=== PATIENT | female | born 1945 | race Caucasian/White ===

== ENCOUNTER → 2016-09-07 | Outpatient (CLI) | payer BC ==
[~2016-09-07] MED LIST: CMD/25 PO; DTR5 PO; HYDC25 PO; LISI-729 PO; LSX20 PO; MULT-190 PO; OMEG10007 PO; PRLSR20 PO; SIMV10TA2 PO; STLS
--- NOTE | 2016-09-08 07:55 | MAMMOGRAPHY REPORT ---
BILATERAL DIGITAL SCREENING MAMMOGRAM WITH CAD: 09/07/2016 CLINICAL HISTORY: Routine screening. Patient has no complaints. TECHNIQUE: Bilateral CC and MLO views with repeat MLO views were obtained. Current study was also evaluated with a Computer Aided Detection (CAD) system. COMPARISON: Comparison is made to exams dated: 12/17/2014 mammogram, 08/09/2013 mammogram, 05/19/2012 mammogram, 12/08/2010 mammogram, 12/05/2009 mammogram - [facility], and 12/04/2008. BREAST COMPOSITION: The tissue of both breasts is almost entirely fatty. FINDINGS: There are stable benign-appearing microcalcifications bilaterally. No new suspicious mass , architectural distortion or cluster of microcalcifications is seen. IMPRESSION: ACR BI-RADS CATEGORY 1: NEGATIVE There is no mammographic evidence of malignancy. A 1 year screening mammogram is recommended. The p atient will receive written notification of the results. Approximately 10% of breast cancers are not detected with mammography. A negative mammographic repor t should not delay biopsy if a clinically suggestive mass is present. Sissy Manzano M.D. ay/:09/07/2016 16:28:11 Provider Contracting Consultant: Bertha MORALES(R)(Aissatou)(BD), [facility] letter sent: Normal 1/2 BI-RADS Code: ACR BI-RADS Category 1: Negative
== END | disposition home or self-care (01) ==
LOC: C.MAMM 13:49
PROVIDERS: ATTEND Family Medicine
DX: Z12.31 Encounter for screening mammogram for malignant neoplasm of breast (principal)

== ENCOUNTER → 2017-11-29 | Outpatient (CLI) | payer BC ==
--- NOTE | 2017-11-30 14:56 | MAMMOGRAPHY REPORT ---
BILATERAL DIGITAL SCREENING MAMMOGRAM TOMOSYNTHESIS WITH CAD: 11/29/2017 CLINICAL HISTORY: Routine screening. TECHNIQUE: The study was acquired using full field digital technology and interpreted from soft copy. Breast tomosynthesis in addition to standard 2D mammography was performed. Current study was also ev aluated with a Computer Aided Detection (CAD) system. COMPARISON: Comparison is made to exams dated: 09/07/2016 mammogram, 12/17/2014 mammogram, 08/09/2013 m ammogram, 05/19/2012 mammogram, 12/08/2010 mammogram, and 12/05/2009 mammogram - [facility]. BREAST COMPOSITION: There are scattered areas of fibroglandular density in both breasts. FINDINGS: There is a stable intramammary lymph node in the right upper outer quadrant posteriorly, an d scattered benign-appearing calcifications. No suspicious mass, architectural distortion or cluster of microcalcifications is seen. IMPRESSION: ACR BI-RADS CATEGORY 1: NEGATIVE There is no mammographic evidence of malignancy. A 1 year screening mammogram is recommended.( 019) The patient will receive written notification of the results. Some breast cancers are not detected with mammography. A negative mammographic report should not catalino y biopsy if a clinically suggestive mass is present. Sissy Manzano M.D. ay/:11/29/2017 14:52:03 Attending Technologist: Padma Hernadez RT(R)(M), [facility] Masonry Installer: RT Juvencio(R)(M), [facility] letter sent: Normal 1/2 BI-RADS Code: ACR BI-RADS Category 1: Negative
== END | disposition home or self-care (01) ==
LOC: C.MAMM 14:24
PROVIDERS: ATTEND Family Medicine
DX: Z12.31 Encounter for screening mammogram for malignant neoplasm of breast (principal)

== ENCOUNTER 2020-10-30 19:11 | Observation (INO) ==
[2020-10-30] MEDS ORDERED: PIPERACILL/TAZOBAC CONSULT ACTIVE PRN ×2 (19:32→23:36)
[2020-10-30] MEDS ORDERED: PIPERACILLIN/TAZOBACTAM 4.5 GM/120 ML BAG IV ONE (19:32)
--- NOTE | 2020-10-30 19:40 | Emergency Department Note ---
History of Present Illness General Chief complaint: Swelling/Edema to Extremity Stated complaint: leg swelling Time Seen by Provider: 10/30/20 19:21 Source: patient and family (Son who is at the bedside) Mode of arrival: ambulatory Limitations: no limitations History of Present Illness This patient is a 74-year-old female comes in with bilateral lower extremity edema. This has been chronic but it gets worse off and on. It has been worse over last week or so. Her right leg is greater than the left and it has some weepiness and skin breakdown. There is a ulcerated area she has had no trauma she does have Parkinson has had several falls in the last 2 weeks but no known injuries. She had a blister on her right leg. Denies fever. Denies chest pain or shortness of breath. She has had the Covid vaccine series. No abdominal pain. No blood or melena in her stool. She is followed by Dr. West She denies any syncope or injuries with falling. Denies history of blood clots. She is on no blood thinners. No history of cellulitis. Home Medications Medication Instructions Recorded Confirmed Type aspirin 81 mg tablet,delayed 81 mg PO QAM 06/23/20 10/30/20 History release bupropion HCl 150 mg tablet,12 hr 150 mg PO QAM 06/23/20 10/30/20 History sustained-release omeprazole 20 mg capsule,delayed 20 mg PO HS 06/23/20 10/30/20 History release oxybutynin chloride 15 mg 15 mg PO QAM 06/23/20 10/30/20 History tablet,extended release 24 hr simvastatin 10 mg tablet 10 mg PO HS 06/23/20 10/30/20 History amino acids-multivit with iron and 1 tab PO DAILY 10/30/20 10/30/20 History minerals tablet carbidopa 25 mg-levodopa 100 mg 2 tab PO QID 10/30/20 10/30/20 History tablet docusate sodium 100 mg capsule 100 mg PO HS 10/30/20 10/30/20 History (Colace) furosemide 20 mg tablet 20 mg PO BID 10/30/20 10/30/20 History lorazepam 0.5 mg tablet 0.5 mg PO DAILY PRN 10/30/20 10/30/20 History Allergies Allergy/AdvReac Type Severity Reaction Status Date / Time ketorolac AdvReac Severe NO TORADOL Verified 10/30/20 21:48 ([id number] ADMISSION) Past Med/Surg History Social History Smoking Status: Never smoker Hx Alcohol Use: No Hx Substance Use: No Preferred Language: Maltese Communication Ability: Effective Beliefs That Will Affect Care: None Current Living Situation: Family Feels Safe at Home: Yes Assistive Devices: Glasses Immunizations: Past medical historyLamberto's Social historyshe lives at home with her son Review of Systems A total of 10 systems reviewed and were otherwise negative Physical Exam General: Well developed well nourished older female who appears in no acute distress, breathing comfortably on room air. Normal speech HEENT: Normal cephalic atraumatic. Pupils are equal round and reactive to light. Extraocular movements are intact. Oropharynx is pink with moist mucous membranes. No swelling of the mouth lips or tongue. Neck: Supple with a midline trachea. No meningeal signs or stiffness, no JVD or bruits. No Stridor. Chest: Clear to auscultation bilaterally. No wheezes or rhonchi. No increased work of breathing. Heart: Regular rate and rhythm without murmurs or gallops. Abdomen: Soft nontender, nondistended without rebound guarding or rigidity. Extremities: No cyanosis clubbing or edema. No calf tenderness or assymetry. She has trace to 1+ bilateral lower extremity edema. Is greater on the right with some swelling in the foot. Her shins are mildly red bilaterally. There is some superficial breakdown with a large circular superficial ulceration in the right curry. She has 2+ distal pulses. She has good capillary refill Spine/Back. Non tender to palpation. No CVA tenderness Skin: Good turgor without rashes. Neurologic exam: Cranial nerves two through 12 are intact. Motor and sensation are intact and symmetrical throughout. Course Administered Medications Acetaminophen (Acetaminophen 325 Mg Tab) 650 mg PO Q4H PRN PRN Reason: Pain or Fever Stop: 11/29/20 23:35 Last Admin: 10/31/20 01:10 Dose: 650 mg Documented by: [id number] Aspirin (Aspirin 81 Mg Ectab) [facility] Stop: 11/30/20 08:59 Last Admin: 11/02/20 08:26 Dose: 81 mg Documented by: [id number] Admin: 11/01/20 10:26 Dose: 81 mg Documented by: [id number] Admin: 10/31/20 09:39 Dose: 81 mg Documented by: [id number] Bupropion HCl (Bupropion Sr 150 Mg Tabcr) 150 mg PO QAM GOLD Stop: 11/30/20 08:59 Last Admin: 11/02/20 08:26 Dose: 150 mg Documented by: [id number] Admin: 11/01/20 10:26 Dose: 150 mg Documented by: [id number] Admin: 10/31/20 09:39 Dose: 150 mg Documented by: [id number] Carbidopa/Levodopa (Carbidopa/Levodopa 25/100mg Tab) 2 tab PO QID GOLD Stop: 11/30/20 08:59 Last Admin: 11/02/20 16:11 Dose: Not Given Documented by: [id number] Admin: 11/02/20 12:29 Dose: Not Given Documented by: [id number] Admin: 11/02/20 08:35 Dose: Not Given Documented by: [id number] Admin: 11/01/20 20:42 Dose: 2 tab Documented by: [id number] Admin: 11/01/20 16:10 Dose: Not Given Documented by: [id number] Admin: 11/01/20 15:12 Dose: Not Given Documented by: [id number] Admin: 11/01/20 10:30 Dose: Not Given Documented by: [id number] Admin: 10/31/20 20:22 Dose: 2 tab Documented by: [id number] Admin: 10/31/20 17:09 Dose: 2 tab Documented by: [id number] Admin: 10/31/20 13:21 Dose: 2 tab Documented by: [id number] Admin: 10/31/20 09:38 Dose: 2 tab Documented by: [id number] Docusate Sodium (Docusate Sodium 100 Mg Cap) 100 mg PO HS GOLD Stop: 11/30/20 20:59 Last Admin: 11/01/20 20:42 Dose: 100 mg Documented by: [id number] Admin: 10/31/20 20:22 Dose: 100 mg Documented by: [id number] Heparin Sodium (Porcine) (Heparin Sod 5,000 Unit/0.5 Ml Vial) 5,000 units SQ Q8 GOLD Stop: 11/30/20 00:29 Last Admin: 11/02/20 14:00 Dose: 5,000 units Documented by: [id number] Admin: 11/02/20 05:26 Dose: 5,000 units Documented by: [id number] Admin: 11/01/20 20:42 Dose: 5,000 units Documented by: [id number] Admin: 11/01/20 16:08 Dose: 5,000 units Documented by: [id number] Admin: 11/01/20 06:17 Dose: 5,000 units Documented by: [id number] Admin: 10/31/20 22:10 Dose: 5,000 units Documented by: [id number] Admin: 10/31/20 13:21 Dose: 5,000 units Documented by: [id number] Admin: 10/31/20 09:37 Dose: 5,000 units Documented by: [id number] Admin: 10/31/20 01:51 Dose: 5,000 units Documented by: [id number] Furosemide 20 mg/ Syringe 2 mls @ 4 mls/min IV [id number] GOLD Stop: 11/30/20 08:59 Last Admin: 11/02/20 08:26 Dose: 4 mls/min Documented by: [id number] Admin: 11/01/20 16:10 Dose: 4 mls/min Documented by: [id number] Admin: 11/01/20 10:26 Dose: 4 mls/min Documented by: [id number] Admin: 10/31/20 17:09 Dose: 4 mls/min Documented by: [id number] Admin: 10/31/20 09:38 Dose: 4 mls/min Documented by: [id number] Oxybutynin Chloride (Oxybutynin Chloride Xl 5 Mg Tabcr) 15 mg PO QA GOLD Stop: 11/30/20 08:59 Last Admin: 11/02/20 08:26 Dose: 15 mg Documented by: [id number] Admin: 11/01/20 10:26 Dose: 15 mg Documented by: [id number] Admin: 10/31/20 09:39 Dose: 15 mg Documented by: [id number] Pantoprazole Sodium (Pantoprazole 40 Mg Tab) 40 mg PO GOLD Stop: 11/30/20 20:59 Last Admin: 11/01/20 20:43 Dose: 40 mg Documented by: [id number] Admin: 10/31/20 20:21 Dose: 40 mg Documented by: [id number] Simvastatin (Simvastatin 10 Mg Tab) 10 mg PO HS GOLD Stop: 11/30/20 20:59 Last Admin: 11/01/20 20:42 Dose: 10 mg Documented by: [id number] Admin: 10/31/20 20:21 Dose: 10 mg Documented by: [id number] Discontinued Medications Furosemide (Furosemide 40 Mg/4 Ml Vial) 20 mg IV BID GOLD Stop: 11/29/20 21:59 Last Admin: 10/30/20 22:22 Dose: 20 mg Documented by: [id number] Piperacillin Sod/Tazobactam Sod (Zosyn) 4.5 gm in 120 mls @ 240 mls/hr IV NOW ONE Stop: 10/30/20 20:01 Last Infusion: 10/30/20 20:35 Dose: 0 mls/hr Documented by: [id number] Admin: 10/30/20 19:58 Dose: 240 mls/hr Documented by: [id number] Piperacillin Sod/Tazobactam (Sod 3.375 gm/ Dextrose) 115 mls @ 28.75 mls/hr IV Q8H GOLD; Protocol Stop: 11/07/20 01:59 Last Infusion: 11/02/20 15:07 Dose: 0 mls/hr Documented by: [id number] Admin: 11/02/20 10:47 Dose: 28.8 mls/hr Documented by: [id number] Infusion: 11/02/20 05:59 Dose: 0 mls/hr Documented by: [id number] Admin: 11/02/20 01:54 Dose: 28.8 mls/hr Documented by: [id number] Infusion: 11/01/20 22:51 Dose: 0 mls/hr Documented by: [id number] Admin: 11/01/20 18:44 Dose: 28.8 mls/hr Documented by: [id number] Infusion: 11/01/20 15:12 Dose: 0 mls/hr Documented by: [id number] Admin: 11/01/20 10:26 Dose: 28.8 mls/hr Documented by: [id number] Infusion: 11/01/20 06:00 Dose: 0 mls/hr Documented by: [id number] Admin: 11/01/20 01:55 Dose: 28.8 mls/hr Documented by: [id number] Infusion: 10/31/20 22:10 Dose: 0 mls/hr Documented by: [id number] Admin: 10/31/20 17:12 Dose: 28.8 mls/hr Documented by: [id number] Infusion: 10/31/20 13:36 Dose: 0 mls/hr Documented by: [id number] Admin: 10/31/20 09:52 Dose: 28.8 mls/hr Documented by: [id number] Infusion: 10/31/20 05:56 Dose: 0 mls/hr Documented by: [id number] Admin: 10/31/20 01:52 Dose: 28.8 mls/hr Documented by: [id number] Medical Decision Making Differential Diagnosis Sepsis, electrolyte or metabolic abnormality, CHF, cellulitis, DVT, Covid, cardiac disease Medical Records Attestation: I reviewed the patient's medical records. Home Medications Current Medication List: was personally reviewed by me Laboratory Data Attestation: I reviewed the patient's lab results. Result diagrams: 11/01/20 06:53 11/02/20 07:07 Lab Results 10/30/20 10/30/20 10/30/20 Range/Units 19:26 19:26 19:26 WBC 9.45 (4.8-10.8) K/uL RBC 3.53 L (4.2-5.4) M/uL Hgb 10.6 L (12.0-16.0) g/dL Hct 32.9 L (37-47) % MCV 93.2 (80-100) fL MCH 30.0 (25-34) pg MCHC 32.2 (32-36) g/dL RDW Std Deviation 51.9 H (36.4-46.3) fL RDW Coeff of Gavino 15.2 H (11.5-14.5) % Plt Count 419 H (130-400) K/uL MPV 9.3 (7.4-10.4) fL Immature Gran % (Auto) 0.1 % Neut % (Auto) 68.7 % Lymph % (Auto) 20.8 % Childress % (Auto) 8.4 % Eos % (Auto) 1.5 % Baso % (Auto) 0.5 % Neut # (Auto) 6.49 (1.4-6.5) K/uL Lymph # (Auto) 1.97 (1.2-3.4) K/uL Childress # (Auto) 0.79 H (0.11-0.59) K/uL Eos # (Auto) 0.14 (0-0.5) K/uL Baso # (Auto) 0.05 (0-0.2) K/uL Immature Gran # (Auto) 0.01 (0.00-0.02) K/uL PT (9.0-12.0) Seconds INR (0.9-1.1) APTT (21.0-31.0) Seconds PTT Ratio Sodium 141 (136-145) mmol/L Potassium 3.1 L (3.5-5.1) mmol/L Chloride 107 (98-107) mmol/L Carbon Dioxide 28 (21-32) mmol/L Anion Gap 6.0 (3-11) BUN 40 H (7-18) mg/dl Creatinine 1.55 H (0.6-1.2) mg/dl Est Cr Clr Drug Dosing 29.5 ml/min Est GFR ( Amer) 37.8 ml/min Est GFR (Non-Af Amer) 32.6 ml/min BUN/Creatinine Ratio 25.5 H (10-20) Glucose 89 (70-99) mg/dl Lactate (0.4-2.0) mmol/L Calcium 9.2 (8.5-10.1) mg/dl Magnesium 2.2 (1.8-2.4) mg/dl Total Bilirubin 0.5 (0.2-1) mg/dl AST 21 (15-37) U/L ALT 24 (12-78) U/L Alkaline Phosphatase 101 (45-117) U/L Troponin I < 0.015 (0-0.045) ng/ml Total Protein 7.5 (6.4-8.2) gm/dl Albumin 3.3 L (3.4-5.0) gm/dl Globulin 4.2 H (2.5-4.0) gm/dl Albumin/Globulin Ratio 0.8 L (0.9-2) Procalcitonin 0.12 (0-0.5) ng/ml COVID-19 Eval Order SARS-CoV-2 (PCR) (Negative) 10/30/20 10/30/20 10/30/20 Range/Units 19:56 19:56 19:57 WBC (4.8-10.8) K/uL RBC (4.2-5.4) M/uL Hgb (12.0-16.0) g/dL Hct (37-47) % MCV (80-100) fL MCH (25-34) pg MCHC (32-36) g/dL RDW Std Deviation (36.4-46.3) fL RDW Coeff of Gavino (11.5-14.5) % Plt Count (130-400) K/uL MPV (7.4-10.4) fL Immature Gran % (Auto) % Neut % (Auto) % Lymph % (Auto) % Childress % (Auto) % Eos % (Auto) % Baso % (Auto) % Neut # (Auto) (1.4-6.5) K/uL Lymph # (Auto) (1.2-3.4) K/uL Childress # (Auto) (0.11-0.59) K/uL Eos # (Auto) (0-0.5) K/uL Baso # (Auto) (0-0.2) K/uL Immature Gran # (Auto) (0.00-0.02) K/uL PT (9.0-12.0) Seconds INR (0.9-1.1) APTT (21.0-31.0) Seconds PTT Ratio Sodium (136-145) mmol/L Potassium (3.5-5.1) mmol/L Chloride (98-107) mmol/L Carbon Dioxide (21-32) mmol/L Anion Gap (3-11) BUN (7-18) mg/dl Creatinine (0.6-1.2) mg/dl Est Cr Clr Drug Dosing ml/min Est GFR ( Amer) ml/min Est GFR (Non-Af Amer) ml/min BUN/Creatinine Ratio (10-20) Glucose (70-99) mg/dl Lactate 1.0 (0.4-2.0) mmol/L Calcium (8.5-10.1) mg/dl Magnesium (1.8-2.4) mg/dl Total Bilirubin (0.2-1) mg/dl AST (15-37) U/L ALT (12-78) U/L Alkaline Phosphatase (45-117) U/L Troponin I (0-0.045) ng/ml Total Protein (6.4-8.2) gm/dl Albumin (3.4-5.0) gm/dl Globulin (2.5-4.0) gm/dl Albumin/Globulin Ratio (0.9-2) Procalcitonin (0-0.5) ng/ml COVID-19 Eval Order Covid19 at [facility] SARS-CoV-2 (PCR) NEGATIVE (Negative) 10/30/20 Range/Units 20:27 WBC (4.8-10.8) K/uL RBC (4.2-5.4) M/uL Hgb (12.0-16.0) g/dL Hct (37-47) % MCV (80-100) fL MCH (25-34) pg MCHC (32-36) g/dL RDW Std Deviation (36.4-46.3) fL RDW Coeff of Gavino (11.5-14.5) % Plt Count (130-400) K/uL MPV (7.4-10.4) fL Immature Gran % (Auto) % Neut % (Auto) % Lymph % (Auto) % Childress % (Auto) % Eos % (Auto) % Baso % (Auto) % Neut # (Auto) (1.4-6.5) K/uL Lymph # (Auto) (1.2-3.4) K/uL [place] # (Auto) (0.11-0.59) K/uL Eos # (Auto) (0-0.5) K/uL Baso # (Auto) (0-0.2) K/uL Immature Gran # (Auto) (0.00-0.02) K/uL PT 10.5 (9.0-12.0) Seconds INR 1.0 (0.9-1.1) APTT 26.2 (21.0-31.0) Seconds PTT Ratio 1.0 Sodium (136-145) mmol/L Potassium (3.5-5.1) mmol/L Chloride (98-107) mmol/L Carbon Dioxide (21-32) mmol/L Anion Gap (3-11) BUN (7-18) mg/dl Creatinine (0.6-1.2) mg/dl Est Cr Clr Drug Dosing ml/min Est GFR ( Amer) ml/min Est GFR (Non-Af Amer) ml/min BUN/Creatinine Ratio (10-20) Glucose (70-99) mg/dl Lactate (0.4-2.0) mmol/L Calcium (8.5-10.1) mg/dl Magnesium (1.8-2.4) mg/dl Total Bilirubin (0.2-1) mg/dl AST (15-37) U/L ALT (12-78) U/L Alkaline Phosphatase (45-117) U/L Troponin I (0-0.045) ng/ml Total Protein (6.4-8.2) gm/dl Albumin (3.4-5.0) gm/dl Globulin (2.5-4.0) gm/dl Albumin/Globulin Ratio (0.9-2) Procalcitonin (0-0.5) ng/ml COVID-19 Eval Order SARS-CoV-2 (PCR) (Negative) Imaging Data My Impression: Chest x-rayno acute infiltrate, failure, pneumothorax seen Radiologist's Impression: Chest X-Ray 10/30/20 19:32 XR chest 1V portable HISTORY: 74 years-old Female SEPSIS acute sepsis COMPARISON: 08/23/2011 TECHNIQUE: Portable AP view of the chest FINDINGS: Cardiomediastinal and hilar silhouettes are within normal limits. No pneumothorax, pleural effusion, airspace consolidation or overt pulmonary edema. Degenerative changes of the shoulders and spine. IMPRESSION: No acute process. ACT 112: Negative or not required by law. The above report was generated using voice recognition software. It may contain grammatical, syntax or spelling errors. Electronically signed by: Ric Wolfe M.D. 10/30/2020 7:53 PM ECG Data Attestation: I personally reviewed and interpreted this ECG as follows: Indication: + weakness Rate (beats per minute): 84 Rhythm: + normal sinus ECG Intervals/blocks: + Normal QRS, + Normal QT and + Normal IN ECG [place]: + Normal ECG ST segments: + Normal ST segments ECG Findings: no PACs or no PVCs Comparison ECG Date: from (09/30/15) Change: no significant change MDM Narrative This patient comes in with bilateral lower extremity edema right greater than left she has a skin breakdown with a ulceration. She does have a history of Parkinson's as well. She is on no blood thinners. IV access was established a sepsis type work-up was obtained. She had chest x-ray and EKG. EKG does not show any ischemic changes or ectopy. She was given IV Zosyn 4.5 g. Chest x-ray does not suggest acute CHF pneumonia or pneumothorax. No significant lecture light or metabolic abnormalities. White count and lactic acid are not significantly elevated. Given the fact that she has significant redness and ulceration/skin breakdown I do think she would benefit from IV antibiotics and further treatment and evaluation I have consulted the [facility] to see her in the ER for these measures. Continuous cardiac monitoring: Orders placed in EMR for continuous cardiac monitoring. Upon my evaluation the was to be in normal sinus rhythm with a rate of 80 Impression & Plan Cellulitis, Edema leg, Lab test negative for COVID-19 virus, Weakness Discharge Plan Visit Data Chief Complaint: Swelling/Edema to Extremity Stated Complaint: leg swelling ED Provider: Shakeel Flores Discharge Problem: Cellulitis, Edema leg, Lab test negative for COVID-19 virus, Weakness Patient Disposition: Admitted As Inpatient Discharge Instructions Interventions: ED Discharge Assessment Last Done: 10/30/20 22:35 Discharge Problem: Cellulitis Qualifiers: Site of cellulitis: extremity Site of cellulitis of extremity: lower extremity Laterality: right Qualified Code(s): L03.115 - Cellulitis of right lower limb
--- NOTE | 2020-10-30 19:55 | XRay Report ---
XR chest 1V portable HISTORY: 74 years-old Female SEPSIS acute sepsis COMPARISON: 08/23/2011 TECHNIQUE: Portable AP view of the chest FINDINGS: Cardiomediastinal and hilar silhouettes are within normal limits. No pneumothorax, pleural effusion, airspace consolidation or overt pulmonary edema. Degenerative changes of the shoulders and spine. IMPRESSION: No acute process. ACT 112: Negative or not required by law. The above report was generated using voice recognition software. It may contain grammatical, syntax o r spelling errors. Electronically signed by: Ric Wolfe M.D. 10/30/2020 7:53 PM
[2020-10-30 20:10] LABS: Basophils # (auto) 0.05 K/uL (0-0.2); Basophils % (auto) 0.5 %; Eosinophils # (auto) 0.14 K/uL (0-0.5); Eosinophils % (auto) 1.5 %; Hematocrit (blood only) 32.9 % (37-47); Hemoglobin 10.6 g/dL (12.0-16.0); Immature Granulocytes # (auto) 0.01 K/uL (0.00-0.02); Immature Granulocytes % (auto) 0.1 %; Lymphocytes # (auto) 1.97 K/uL (1.2-3.4); Lymphocytes % (auto) 20.8 %; Mean Corpuscular Hgb Conc 32.2 g/dL (32-36); Mean Corpuscular Volume 93.2 fL (80-100); Mean Platelet Volume 9.3 fL (7.4-10.4); Monocytes # (auto) 0.79 K/uL (0.11-0.59); Monocytes % (auto) 8.4 %; Neutrophils # (auto) 6.49 K/uL (1.4-6.5); Neutrophils % (auto) 68.7 %; Platelet Count 419 K/uL (130-400); RDW Coefficient of Variation 15.2 % (11.5-14.5); RDW Standard Deviation 51.9 fL (36.4-46.3); Red Blood Count 3.53 M/uL (4.2-5.4); White Blood Count 9.45 K/uL (4.8-10.8)
[2020-10-30 20:27] LABS: Alanine Aminotransferase 24 U/L (12-78); Albumin Level 3.3 gm/dl (3.4-5.0); Aspartate Aminotransferase 21 U/L (15-37); BUN Creatinine Ratio 25.5 (10-20); Blood Urea Nitrogen 40 mg/dl (7-18); Calcium 9.2 mg/dl (8.5-10.1); Carbon Dioxide 28 mmol/L (21-32); Chloride 107 mmol/L (98-107); Creatinine Clr Calc Pharmacy 29.5 ml/min; Est GFR (African American) 37.8 ml/min; Est GFR (Non-African American) 32.6 ml/min; Glucose 89 mg/dl (70-99); Magnesium 2.2 mg/dl (1.8-2.4); Potassium 3.1 mmol/L (3.5-5.1); Sodium 141 mmol/L (136-145)
[2020-10-30 20:31] LABS: Albumin Globulin Ratio 0.8 (0.9-2); Alkaline Phosphatase 101 U/L (45-117); Bilirubin,Total 0.5 mg/dl (0.2-1); Globulin 4.2 gm/dl (2.5-4.0); Total Protein 7.5 gm/dl (6.4-8.2); Troponin I < 0.015 ng/ml (0-0.045)
[2020-10-30 20:46] LABS: Partial Thromboplastin Time 26.2 Seconds (21.0-31.0); Prothrombin Time 10.5 Seconds (9.0-12.0)
[2020-10-30] MEDS ORDERED: FUROSEMIDE 40 MG/4 ML VIAL IV SCH (22:00)
[2020-10-30 22:59] LABS: Appearance Urine Clear (Clear); Bacteria Urine Automated 2+ (Negative); Bilirubin Urine Negative (Negative); Blood Urine Trace (Negative); Cast Urine Automated 0 /lpf (0-5); Color Urine Yellow; Glucose Urine UA Negative (Negative); Ketones Urine Negative (Negative); Leukocyte Esterase Urine Negative (Negative); Nitrite Urine Positive (Negative); Protein Urine Negative (Negative); RBC Urine Automated 0-4 /hpf (0-4); Specific Gravity Urine 1.014 (1.000-1.030); Urobilinogen Urine Negative (Negative); pH Urine 5.5 (4.5-7.5)
--- NOTE | 2020-10-30 23:22 | History and Physical Report ---
DATE OF ADMISSION: 10/30/2020. CHIEF COMPLAINT: Lower extremity edema and ambulatory dysfunction. HISTORY OF PRESENT ILLNESS: This is a 74-year-old female with past medical history significant for hyperlipidemia, hypertension, venous insufficiency, chronic lower extremity lymphedema, hypertension, chronic kidney disease stage III, reflux esophagitis, history of anal fistula, history of Parkinson disease, history of generalized osteoarthritis, insomnia, generalized anxiety disorder, who lives at home with her son, usually ambulates with a walker and wheelchair. Has chronic lower extremity edema. Recently acid leveler last month stopped her lisinopril and increased her Lasix to 20 mg b.i.d. because of increased lower extremity edema and hyperkalemia. As per son, she is missing the Lasix doses, but since last 1 week, the swelling has increased in the lower extremity and she is not able to walk and some erythematous changes in lower extremity and a blister burst and she has an open superficial wound. Denies any fever or chills. No pain. Currently resting comfortably and hemodynamically stable. Denies any headache, no blurred visions, no earache, no runny nose, no sore throat. No cough. Appetite is okay, no dysphagia, no nausea, no chest pain, no shortness of breath, no abdominal pain. Normal bowel and bladder movements. ALLERGIES: KETOROLAC. PAST MEDICAL HISTORY: As mentioned above. PAST SURGICAL HISTORY: Total knee arthroplasty bilaterally, colonoscopy, repair of anal fistula, total abdominal hysterectomy with removal of tubes. MEDICATIONS: The patient is on aspirin 81 mg p.o. daily, omeprazole 20 mg p.o. at bedtime, Lasix 20 mg p.o. b.i.d., melatonin 5 mg p.o. at bedtime p.r.n., bupropion SR 150 mg p.o. daily, oxybutynin chloride ER 150 mg p.o. daily, simvastatin 10 mg p.o. daily, carbidopa/levodopa 25/100 mg 2 tablets q.i.d., Ativan 0.5 mg p.o. daily p.r.n., aspirin 81 mg p.o. daily, Ocuvite Extra one tablet p.o. daily. FAMILY HISTORY: Significant for mother had pancreatic cancer, eye problems, stroke; father had heart disorder, hypertension. SOCIAL HISTORY: Currently lives with son. No smoking, no alcohol, no drug use. REVIEW OF SYSTEMS: As per HPI. Rest of the review of systems is negative. PHYSICAL EXAMINATION: GENERAL: The patient is of moderate build, not in acute distress. VITAL SIGNS: Temperature 37.5, pulse 96, respiratory rate 20, blood pressure 141/68, oxygen 98% on room air. HEENT: Pupils equal, round and reactive to light. Oral mucosa moist. NECK: No JVD, no neck masses. HEART: S1 and S2 heard. Regular rate and rhythm. No murmur, no gallop. RESPIRATORY SYSTEM: Normal AP diameter. No accessory muscle use. No wheezing, no crackles. ABDOMEN: Soft, bowel sounds present, nontender, no distention. CENTRAL NERVOUS SYSTEM: Cranial nerves II through XII are grossly intact, nonfocal. EXTREMITIES: Bilateral lower extremity gross edema with superficial ulcer seen in the right curry, some mild erythematous changes. LABORATORY DATA: WBC 9.4, hemoglobin 10.6, hematocrit 32.9, platelets 419. PT 10.5, INR 1, APTT 26.2. Sodium 141, potassium 3.1, chloride 107, bicarbonate 28, BUN 40, creatinine 1.5, serum glucose 89. Lactate 1, calcium 10.2, total magnesium 2.2, total bilirubin 0.5, AST 21, ALT 24, alkaline phosphatase 101. Troponin I less than 0.015. Procalcitonin 0.12. SARS-CoV-2 PCR negative. IMAGING DATA: Chest x-ray, no acute process. EKG: Normal sinus rhythm at a rate of 84, no acute ST changes seen. ASSESSMENT AND PLAN: This is a 74-year-old female who presents with worsening lower extremity edema. 1. Worsening lower extremity edema: History of venous insufficiency, history of lymphedema. Echo in November 2015 shows normal EF with grade 1 diastolic dysfunction. Recently last month, nephrology increased Lasix to 20 mg b.i.d., but as per son, she is not taking it regularly. Questionable cellulitis. We will also rule out DVT. ER empirically started on Zosyn, which we will continue. We will place on IV Lasix 20 b.i.d. Follow the daily weights, I's and O's, and if any concern, we will do echocardiogram. The patient also has ambulatory dysfunction secondary to above. PT/OT, and follow the response. 2. Chronic kidney disease stage III: Baseline creatinine around 1.2 to 1.7, presently 1.5. We will follow the labs while the patient is getting diuretics. 3. Hypokalemia. The patient was having hyperkalemia and lisinopril was stopped and Lasix was increased as outpatient. Currently comes with a potassium of 3.1. We will replace and follow the labs. 4. History of generalized anxiety disorder: Continue her bupropion and Ativan p.r.n. 5. Insomnia: Continue melatonin at bedtime p.r.n. 6. History of reflux esophagitis: Continue omeprazole. 7. Hyperlipidemia: On statin. 8. Hypertension: Currently on diuretics. We will monitor the blood pressure. 9. History of Parkinson's: Continue carbidopa/levodopa. 10. Deep venous thrombosis prophylaxis: Will place on heparin subcu. DISPOSITION: Closely monitor in the med tele. PT, OT prior to discharge. Social service to help with discharge planning. Level 1 full code. Job ID: [id number] MTDD
[2020-10-30] MEDS ORDERED: ONDANSETRON INJ 2 MG/ML 2 ML VIAL IV PRN (23:36)
[2020-10-30] MEDS ORDERED: ACETAMINOPHEN 325 MG TAB PO PRN (23:36)
[2020-10-30] MEDS ORDERED: LORazepam 0.5 MG TAB PO PRN (23:36)
[2020-10-30] MEDS ORDERED: MELATONIN 3 MG TAB PO PRN (23:36)
[2020-10-30] MEDS ORDERED: POLYETHYLENE (MIRALAX) 17 GM PACK PO PRN (23:36)
[2020-10-31] MEDS: HEPARIN SOD 5,000 UNIT/0.5 ML VIAL SQ SCH ×4 (01:51→22:10)
[2020-10-31] MEDS: PIPERACILLIN/TAZOBACTAM 3.375 GM in DEXTROSE 5% 100 ML IV SCH ×3 (01:52→17:12)
--- NOTE | 2020-10-31 08:30 | Ultrasound Report ---
BILATERAL LOWER EXTREMITY VENOUS DOPPLER CLINICAL HISTORY: b/l lower ext edema and erythema. dvt? COMPARISON STUDY: No previous studies for comparison. TECHNIQUE: Sonography of the deep venous system of the bilateral lower extremities was performed. Co mpression and augmentation were evaluated. FINDINGS: The bilateral common femoral, superficial femoral and popliteal veins were compressible. A ugmentation was normal. Flow was shown within the deep calf vessels although the calf vessels were cho boptimally assessed on this exam. IMPRESSION: No evidence of deep venous thrombus within the bilateral lower extremities. ACT 112: Negative or not required by law. Electronically signed by: Dillan Arevalo M.D. 10/31/2020 8:29 AM
[2020-10-31] MEDS: CARBIDOPA/LEVODOPA 25/100MG TAB PO SCH ×4 (09:38→20:22)
[2020-10-31] MEDS: FUROSEMIDE 20 MG in SYRINGE 0 ML IV SCH ×2 (09:38→17:09)
[2020-10-31] MEDS: buPROPion SR 150 MG TABCR PO SCH (09:39)
[2020-10-31] MEDS: ASPIRIN 81 MG ECTAB PO SCH (09:39)
[2020-10-31] MEDS: OXYBUTYNIN CHLORIDE XL 5 MG TABCR PO SCH (09:39)
--- NOTE | 2020-10-31 13:51 | Electrocardiogram Report ---
Test Reason : Blood Pressure : / mmHG Vent. Rate : 084 BPM Atrial Rate : 084 BPM P-R Int : 142 ms QRS Dur : 084 ms QT Int : 414 ms P-R-T Axes : 062 049 037 degrees QTc Int : 489 ms Poor data quality, interpretation may be adversely affected Normal sinus rhythm Normal ECG When compared with ECG of 30-SEP-2015 20:15, Aberrant conduction is no longer Present Nonspecific T wave abnormality no longer evident in Anterior leads Confirmed by Gilles Henderson ([id number]) on 10/31/2020 1:51:22 PM Referred By: REFERRED SELF Confirmed By:Doc Henderson
[2020-10-31] MEDS: PANTOprazole 40 MG TAB PO SCH (20:21)
[2020-10-31] MEDS: SIMVASTATIN 10 MG TAB PO SCH (20:21)
[2020-10-31] MEDS: DOCUSATE SODIUM 100 MG CAP PO SCH (20:22)
--- NOTE | 2020-10-31 22:50 | Hospitalist Progress Note ---
Date of Service October 31, 2020 Assessment & Plan (1) Edema leg: Plan: Present on admission with worsening worsening lower extremity edema: History of venous insufficiency and lymphedema. Echo in November 2015 shows normal EF with grade 1 diastolic dysfunction. Doppler of lower extremity showed no evidence of DVT Continue Lasix 20 mg IV twice daily Continue monitor BMP and I&O We will consider to get a resting echo to monitor for melena evaluated, no additional medical pneumonococcal will follow delusional Possible cellulitis Right lower extremity ulcer with mild erythema on admission Continue IV antibiotic with Zosyn for now Continue monitor Chronic kidney disease stage III: Creatinine 1.5 with Baseline creatinine around 1.2 to 1.7 Continue monitor BMP while on IV Lasix Hypokalemia. Potassium on admission 3.1 Potassium replaced on admission Continue monitor BMP History of generalized anxiety disorder: Continue her bupropion and Ativan p.r.n. Insomnia: Continue melatonin at bedtime p.r.n. History of reflux esophagitis: Continue omeprazole. Hyperlipidemia: Continue on statin. Hypertension: BP stable Continue monitor blood pressure History of Parkinson's: Continue carbidopa/levodopa. DVT px on Heparin subcu CODE STATUS full code Admission and Anticipated Discharge Date Admission Date: October 30, 2020 Subjective Patient was seen and examined for follow-up of lower extremity edema Lying in bed with no acute distress eating lunch Patient said that she does not have any pain in the lower extremity She said prior to come to the ER, there was redness in right lower extremity Denies any chest pain, palpitation, dizziness, shortness of breath. Physical Exam Physical Exam: General- No acute distress Head- atraumatic Eyes- PERRL, EOMI, ENT- oropharynx clear Neck- supple, no JVD Lungs- clear to auscultation Heart- regular rhythm; no murmur Abdomen- normal bowel sounds, soft, nontender Extremities- no calf tenderness' + edema Neuro- alert, oriented x 3; PERRL, EOMI; no facial palsy; no dysarthria Skin- warm & dry Results & Data Results & Data ([facility]) Vital Signs (Past 12 Hours) Vital Signs Temp Pulse Pulse Resp BP Pulse Ox 10/31/20 19:39 36.6 C 77 18 108/67 98 10/31/20 15:00 78 10/31/20 14:43 36.8 C 75 18 116/70 96 10/31/20 11:15 36.9 C 76 18 117/68 97
[2020-11-01] MEDS: PIPERACILLIN/TAZOBACTAM 3.375 GM in DEXTROSE 5% 100 ML IV SCH ×3 (01:55→18:44)
[2020-11-01] MEDS: HEPARIN SOD 5,000 UNIT/0.5 ML VIAL SQ SCH ×3 (06:17→20:42)
[2020-11-01 07:15] LABS: Hematocrit (blood only) 32.4 % (37-47); Hemoglobin 10.5 g/dL (12.0-16.0); Mean Corpuscular Hemoglobin 30.3 pg (25-34); Mean Corpuscular Hgb Conc 32.4 g/dL (32-36); Mean Corpuscular Volume 93.4 fL (80-100); Mean Platelet Volume 9.2 fL (7.4-10.4); Platelet Count 384 K/uL (130-400); RDW Coefficient of Variation 15.3 % (11.5-14.5); RDW Standard Deviation 51.6 fL (36.4-46.3); Red Blood Count 3.47 M/uL (4.2-5.4); White Blood Count 9.37 K/uL (4.8-10.8)
[2020-11-01 07:47] LABS: BUN Creatinine Ratio 18.5 (10-20); Calcium 9.1 mg/dl (8.5-10.1); Creatinine Clr Calc Pharmacy 28.2 ml/min; Est GFR (Non-African American) 31.9 ml/min; Potassium 3.5 mmol/L (3.5-5.1)
[2020-11-01] MEDS: ASPIRIN 81 MG ECTAB PO SCH (10:26)
[2020-11-01] MEDS: FUROSEMIDE 20 MG in SYRINGE 0 ML IV SCH ×2 (10:26→16:10)
[2020-11-01] MEDS: buPROPion SR 150 MG TABCR PO SCH (10:26)
[2020-11-01] MEDS: CARBIDOPA/LEVODOPA 25/100MG TAB PO SCH ×5 (10:26→20:42)
[2020-11-01] MEDS: OXYBUTYNIN CHLORIDE XL 5 MG TABCR PO SCH (10:26)
--- NOTE | 2020-11-01 17:25 | Hospitalist Progress Note ---
Date of Service November 01, 2020 Assessment & Plan (1) Edema leg: Plan: Present on admission with worsening worsening lower extremity edema: History of venous insufficiency and lymphedema. Echo in November 2015 shows normal EF with grade 1 diastolic dysfunction. Doppler of lower extremity showed no evidence of DVT Continue Lasix 20 mg IV twice daily Continue monitor BMP while on IV Lasix Possible cellulitis Right lower extremity ulcer with mild erythema on admission Continue IV antibiotic with Zosyn for now Continue monitor UTI Urine culture grew been negative Continue IV Zosyn for now We will follow urine sensitivity Chronic kidney disease stage III: Creatinine 1.5 with Baseline creatinine around 1.2 to 1.7 Continue monitor BMP while on IV Lasix Hypokalemia. Potassium on admission 3.1 Potassium replaced on admission Continue monitor BMP History of generalized anxiety disorder: Continue her bupropion and Ativan p.r.n. Insomnia: Continue melatonin at bedtime p.r.n. History of reflux esophagitis: Continue omeprazole. Hyperlipidemia: Continue on statin. Hypertension: BP stable Continue monitor blood pressure History of Parkinson's: Patient said carbidopa/levodopa was discontinued by provider due to lethargy DVT px on Heparin subcu CODE STATUS full code Admission and Anticipated Discharge Date Admission Date: October 30, 2020 Subjective Patient was seen and examined for follow-up of lower extremity edema Lower extremity edema improved Denies any chest pain, palpitation, dizziness, shortness of breath. Physical Exam Physical Exam: General- No acute distress Head- atraumatic Eyes- PERRL, EOMI, ENT- oropharynx clear Neck- supple, no JVD Lungs- clear to auscultation Heart- regular rhythm; no murmur Abdomen- normal bowel sounds, soft, nontender Extremities- no calf tenderness' + edema-improved Neuro- alert, oriented x 3; PERRL, EOMI; no facial palsy; no dysarthria Skin- warm & dry Results & Data Results & Data ([facility]) Vital Signs (Past 12 Hours) Vital Signs Temp Pulse Pulse Resp BP BP Pulse Ox 11/01/20 15:09 37.0 C 71 18 109/66 98 11/01/20 11:23 36.3 C L 77 18 120/72 98 11/01/20 10:22 36.8 C 86 18 118/58 L 98 11/01/20 07:23 69
[2020-11-01] MEDS: DOCUSATE SODIUM 100 MG CAP PO SCH (20:42)
[2020-11-01] MEDS: SIMVASTATIN 10 MG TAB PO SCH (20:42)
[2020-11-01] MEDS: PANTOprazole 40 MG TAB PO SCH (20:43)
[2020-11-02] MEDS: PIPERACILLIN/TAZOBACTAM 3.375 GM in DEXTROSE 5% 100 ML IV SCH ×2 (01:54→10:47)
[2020-11-02] MEDS: HEPARIN SOD 5,000 UNIT/0.5 ML VIAL SQ SCH ×3 (05:26→20:29)
[2020-11-02 08:16] LABS: BUN Creatinine Ratio 13.6 (10-20); Calcium 8.9 mg/dl (8.5-10.1); Creatinine Clr Calc Pharmacy 26.5 ml/min; Est GFR (African American) 34.6 ml/min; Est GFR (Non-African American) 29.8 ml/min; Potassium 3.8 mmol/L (3.5-5.1)
[2020-11-02] MEDS: FUROSEMIDE 20 MG in SYRINGE 0 ML IV SCH ×2 (08:26→18:12)
[2020-11-02] MEDS: OXYBUTYNIN CHLORIDE XL 5 MG TABCR PO SCH (08:26)
[2020-11-02] MEDS: buPROPion SR 150 MG TABCR PO SCH (08:26)
[2020-11-02] MEDS: CARBIDOPA/LEVODOPA 25/100MG TAB PO SCH ×5 (08:26→20:29)
[2020-11-02] MEDS: ASPIRIN 81 MG ECTAB PO SCH (08:26)
--- NOTE | 2020-11-02 14:28 | Hospitalist Progress Note ---
Date of Service November 02, 2020 Assessment & Plan (1) Edema leg: Plan: Present on admission with worsening worsening lower extremity edema: History of venous insufficiency and lymphedema. Echo in November 2015 shows normal EF with grade 1 diastolic dysfunction. Doppler of lower extremity showed no evidence of DVT On Lasix 20 mg IV twice daily, will transition to IV Continue monitor BMP Possible cellulitis Right lower extremity ulcer with mild erythema on admission IV antibiotic with Zosyn, will transition to PO keflex Continue monitor UTI Urine culture grew gram negative bacilli- Ecoli Currently on IV Zosyn, will transition to PO Keflex Will complete course of abx Chronic kidney disease stage III: Creatinine 1.6 with Baseline creatinine around 1.2 to 1.7 Continue monitor BMP while on IV Lasix Hypokalemia. Potassium on admission 3.1 Potassium replaced on admission K 3.8 today Continue monitor BMP History of generalized anxiety disorder: Continue her bupropion and Ativan p.r.n. Insomnia: Continue melatonin at bedtime p.r.n. History of reflux esophagitis: Continue omeprazole. Hyperlipidemia: Continue on statin. Hypertension: BP stable Continue monitor blood pressure History of Parkinson's: Patient said carbidopa/levodopa was discontinued by provider due to lethargy DVT px on Heparin subcu CODE STATUS full code Disposition PT/OT eval Plan to discharge home today Admission and Anticipated Discharge Date Admission Date: October 30, 2020 Subjective Patient was seen and examined for follow-up of lower extremity edema Lying in bed with no distress Pt is doing much better Lower extremity improves significantly Denies any chest pain, palpitation, dizziness, shortness of breath. Physical Exam Physical Exam: General- No acute distress Head- atraumatic Eyes- PERRL, EOMI, ENT- oropharynx clear Neck- supple, no JVD Lungs- clear to auscultation Heart- regular rhythm; no murmur Abdomen- normal bowel sounds, soft, nontender Extremities- no calf tenderness' + edema-improved Neuro- alert, oriented x 3; PERRL, EOMI; no facial palsy; no dysarthria Skin- warm & dry Results & Data Results & Data ([facility]) Vital Signs (Past 12 Hours) Vital Signs Temp Pulse Pulse Resp BP BP Pulse Ox 11/02/20 12:00 36.6 C 65 18 100/56 L 100 11/02/20 07:58 36.7 C 60 18 118/70 96 11/02/20 07:27 59 L 11/02/20 04:06 36.6 C 64 14 116/64 96
[2020-11-02] MEDS: PANTOprazole 40 MG TAB PO SCH (20:28)
[2020-11-02] MEDS: cephALEXin 500 MG CAP PO SCH (20:29)
[2020-11-02] MEDS: DOCUSATE SODIUM 100 MG CAP PO SCH (20:29)
[2020-11-02] MEDS: SIMVASTATIN 10 MG TAB PO SCH (20:29)
[2020-11-03] MEDS: HEPARIN SOD 5,000 UNIT/0.5 ML VIAL SQ SCH ×3 (05:40→21:06)
[2020-11-03 06:14] LABS: Hematocrit (blood only) 31.9 % (37-47); Hemoglobin 10.2 g/dL (12.0-16.0); Mean Corpuscular Hemoglobin 29.6 pg (25-34); Mean Corpuscular Volume 92.5 fL (80-100); Platelet Count 388 K/uL (130-400); RDW Coefficient of Variation 15.5 % (11.5-14.5); RDW Standard Deviation 52.5 fL (36.4-46.3); Red Blood Count 3.45 M/uL (4.2-5.4); White Blood Count 6.89 K/uL (4.8-10.8)
[2020-11-03] MEDS: OXYBUTYNIN CHLORIDE XL 5 MG TABCR PO SCH (07:31)
[2020-11-03] MEDS: buPROPion SR 150 MG TABCR PO SCH (07:32)
[2020-11-03] MEDS: cephALEXin 500 MG CAP PO SCH ×2 (07:32→20:16)
[2020-11-03] MEDS: ASPIRIN 81 MG ECTAB PO SCH (07:32)
[2020-11-03] MEDS: CARBIDOPA/LEVODOPA 25/100MG TAB PO SCH ×5 (07:33→17:15)
[2020-11-03] MEDS: FUROSEMIDE 20 MG in SYRINGE 0 ML IV SCH ×2 (07:33→16:57)
[2020-11-03 08:49] LABS: BUN Creatinine Ratio 17.5 (10-20); Calcium 9.2 mg/dl (8.5-10.1); Creatinine Clr Calc Pharmacy 30.4 ml/min; Est GFR (Non-African American) 35.4 ml/min; Potassium 3.7 mmol/L (3.5-5.1)
--- NOTE | 2020-11-03 12:40 | Hospitalist Progress Note ---
Date of Service November 03, 2020 Assessment & Plan (1) Edema leg: Plan: Present on admission with worsening worsening lower extremity edema: History of venous insufficiency and lymphedema. Echo in November 2015 shows normal EF with grade 1 diastolic dysfunction. Doppler of lower extremity showed no evidence of DVT On Lasix 20 mg IV twice daily, will transition to her PO dose on discharge Pt was able to diuresis well with negative balance 11.5 L Will recommend fluid restriction on discharge Continue monitor BMP Possible cellulitis Right lower extremity ulcer with mild erythema on admission IV antibiotic started with Zosyn on admission, then transition to PO keflex Continue monitor UTI Urine culture grew gram negative bacilli- Ecoli Currently on IV Zosyn, will transition to PO Keflex Will complete course of abx with PO Keflex Ambulatory dysfunction General weakness Fall Continue PT/OT Son would like her to go to rehab or SNF to get stronger before transition home Cabidopa/Levodopa was discontinued by outpatient patient Fall precaution Chronic kidney disease stage III: Creatinine 1.4 with Baseline creatinine around 1.2 to 1.7 Continue monitor BMP while on IV Lasix Hypokalemia. Potassium on admission 3.1 Potassium replaced on admission K 3.7 today Continue monitor BMP History of generalized anxiety disorder: Continue her bupropion and Ativan p.r.n. Insomnia: Continue melatonin at bedtime p.r.n. History of reflux esophagitis: Continue omeprazole. Hyperlipidemia: Continue on statin. Hypertension: BP stable Continue monitor blood pressure History of Parkinson's: Patient said carbidopa/levodopa was discontinued by provider due to lethargy DVT px on Heparin subcu CODE STATUS full code Disposition PT/OT eval Waiting for placement Admission and Anticipated Discharge Date Admission Date: October 30, 2020 Subjective Patient was seen and examined for follow-up of lower extremity edema Sitting in chair with no distress and comfortable Pt is doing much better Lower extremity edema improves significantly I spoke to son Johan today and provided with updates Johan was concerned about his mother is going home today He said that pt has been declined in the past month to the point where she required more care and assistance She said that she has been very incontinence and she fell 4 times in the last few weeks Son said that she is getting weak with ambulatory dysfunction Son agreed for her mother to go to rehab for a couple weeks to get stronger before coming home Denies any chest pain, palpitation, dizziness, shortness of breath. Physical Exam Physical Exam: General- No acute distress Head- atraumatic Eyes- PERRL, EOMI, ENT- oropharynx clear Neck- supple, no JVD Lungs- clear to auscultation Heart- regular rhythm; no murmur Abdomen- normal bowel sounds, soft, nontender Extremities- no calf tenderness' + edema-improved Neuro- alert, oriented x 3; PERRL, EOMI; no facial palsy; no dysarthria Skin- warm & dry Results & Data Results & Data ([facility]) Vital Signs (Past 12 Hours) Vital Signs Temp Pulse Pulse Resp BP Pulse Ox 11/03/20 07:49 36.8 C 67 18 121/67 95 11/03/20 07:11 69 11/03/20 03:01 37.1 C 71 18 118/70 95 11/03/20 01:02 67
[2020-11-03] MEDS: PANTOprazole 40 MG TAB PO SCH (20:16)
[2020-11-03] MEDS: DOCUSATE SODIUM 100 MG CAP PO SCH (20:16)
[2020-11-03] MEDS: SIMVASTATIN 10 MG TAB PO SCH (20:17)
[2020-11-04] MEDS: HEPARIN SOD 5,000 UNIT/0.5 ML VIAL SQ SCH ×3 (06:11→19:29)
[2020-11-04] MEDS: ASPIRIN 81 MG ECTAB PO SCH (08:12)
[2020-11-04] MEDS: buPROPion SR 150 MG TABCR PO SCH (08:12)
[2020-11-04] MEDS: OXYBUTYNIN CHLORIDE XL 5 MG TABCR PO SCH (08:12)
[2020-11-04] MEDS: cephALEXin 500 MG CAP PO SCH ×2 (08:12→19:28)
[2020-11-04] MEDS: FUROSEMIDE 20 MG in SYRINGE 0 ML IV SCH (08:13)
[2020-11-04 11:49] LABS: BUN Creatinine Ratio 23.7 (10-20); Calcium 9.5 mg/dl (8.5-10.1); Creatinine Clr Calc Pharmacy 27.1 ml/min; Est GFR (African American) 36.1 ml/min; Est GFR (Non-African American) 31.2 ml/min; Potassium 3.9 mmol/L (3.5-5.1)
--- NOTE | 2020-11-04 14:07 | Hospitalist Progress Note ---
Date of Service November 04, 2020 Assessment & Plan (1) Edema leg: Plan: Present on admission with worsening worsening lower extremity edema: History of venous insufficiency and lymphedema. Echo in November 2015 shows normal EF with grade 1 diastolic dysfunction. Doppler of lower extremity showed no evidence of DVT On Lasix 20 mg IV twice daily, will transition to her PO dose on discharge Pt was able to diuresis well with negative balance 11.5 L Will recommend fluid restriction to 1.8 L daily on discharge Continue monitor BMP Possible cellulitis Right lower extremity ulcer with mild erythema on admission IV antibiotic started with Zosyn on admission, then transition to PO keflex Continue monitor UTI Urine culture grew gram negative bacilli- Ecoli Currently on IV Zosyn, will transition to PO Keflex Will complete course of abx with PO Keflex Ambulatory dysfunction General weakness Fall Continue PT/OT Son would like her to go to rehab or SNF to get stronger before transition home Cabidopa/Levodopa was discontinued by outpatient patient Fall precaution Waiting for placement to rehab Chronic kidney disease stage III: Creatinine 1.6 with Baseline creatinine around 1.2 to 1.7 Continue monitor BMP while on IV Lasix Hypokalemia. Potassium on admission 3.1 Potassium replaced on admission K 3.9 today Continue monitor BMP History of generalized anxiety disorder: Continue her bupropion and Ativan p.r.n. Insomnia: Continue melatonin at bedtime p.r.n. History of reflux esophagitis: Continue omeprazole. Hyperlipidemia: Continue on statin. Hypertension: BP stable Continue monitor blood pressure History of Parkinson's: Patient said carbidopa/levodopa was discontinued by provider due to lethargy DVT px on Heparin subcu CODE STATUS full code Disposition PT/OT eval Waiting for placement Admission and Anticipated Discharge Date Admission Date: October 30, 2020 Subjective Patient was seen and examined for follow-up of lower extremity edema Sitting in chair with no distress and comfortable Pt is doing much better Lower extremity edema improves significantly Denies any chest pain, palpitation, dizziness, shortness of breath. Physical Exam Physical Exam: General- No acute distress Head- atraumatic Eyes- PERRL, EOMI, ENT- oropharynx clear Neck- supple, no JVD Lungs- clear to auscultation Heart- regular rhythm; no murmur Abdomen- normal bowel sounds, soft, nontender Extremities- no calf tenderness' + edema-improved Neuro- alert, oriented x 3; PERRL, EOMI; no facial palsy; no dysarthria Skin- warm & dry Results & Data Results & Data ([facility]) Vital Signs (Past 12 Hours) Vital Signs Temp Pulse Pulse Resp BP Pulse Ox 11/04/20 12:09 36.9 C 86 18 118/75 98 11/04/20 07:00 36.7 C 67 71 18 137/69 94 11/04/20 03:38 36.9 C 65 18 124/67 95
[2020-11-04] MEDS: SIMVASTATIN 10 MG TAB PO SCH (19:28)
[2020-11-04] MEDS: PANTOprazole 40 MG TAB PO SCH (19:28)
[2020-11-04] MEDS: DOCUSATE SODIUM 100 MG CAP PO SCH (19:28)
[2020-11-05] MEDS: HEPARIN SOD 5,000 UNIT/0.5 ML VIAL SQ SCH ×2 (05:21→13:52)
[2020-11-05] MEDS: buPROPion SR 150 MG TABCR PO SCH (08:17)
[2020-11-05] MEDS: OXYBUTYNIN CHLORIDE XL 5 MG TABCR PO SCH (08:17)
[2020-11-05] MEDS: ASPIRIN 81 MG ECTAB PO SCH (08:18)
[2020-11-05] MEDS: cephALEXin 500 MG CAP PO SCH (08:18)
[2020-11-05] MEDS ORDERED: FUROSEMIDE 20 MG TAB PO SCH (10:00)
[2020-11-05 11:01] LABS: BUN Creatinine Ratio 25.5 (10-20); Calcium 9.2 mg/dl (8.5-10.1); Creatinine Clr Calc Pharmacy 27.5 ml/min; Est GFR (African American) 36.7 ml/min; Est GFR (Non-African American) 31.7 ml/min; Potassium 3.5 mmol/L (3.5-5.1)
[2020-11-05] MEDS ORDERED: FUROSEMIDE 20 MG TAB PO ONE (11:26)
[2020-11-05] MEDS ORDERED: POTASSIUM CHLORIDE CRTAB 20 MEQ TABCR PO STA (15:06)
--- NOTE | 2020-11-05 15:19 | Discharge Summary ---
Date of Service November 05, 2020 Admission HPI Per Admitting Provider CHIEF COMPLAINT: Lower extremity edema and ambulatory dysfunction. HISTORY OF PRESENT ILLNESS: This is a 74-year-old female with past medical history significant for hyperlipidemia, hypertension, venous insufficiency, chronic lower extremity lymphedema, hypertension, chronic kidney disease stage III, reflux esophagitis, history of anal fistula, history of Parkinson disease, history of generalized osteoarthritis, insomnia, generalized anxiety disorder, who lives at home with her son, usually ambulates with a walker and wheelchair. Has chronic lower extremity edema. 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 because of increased lower extremity edema and hyperkalemia. As per son, she is missing the Lasix doses, but since last 1 week, the swelling has increased in the lower extremity and she is not able to walk and some erythematous changes in lower extremity and a blister burst and she has an open superficial wound. Denies any fever or chills. No pain. Currently resting comfortably and hemodynamically stable. Denies any headache, no blurred visions, no earache, no runny nose, no sore throat. No cough. Appetite is okay, no dysphagia, no nausea, no chest pain, no shortness of breath, no abdominal pain. Normal bowel and bladder movements. Admission Exam Per Admitting Provider GENERAL: The patient is of moderate build, not in acute distress. VITAL SIGNS: Temperature 37.5, pulse 96, respiratory rate 20, blood pressure 141/68, oxygen 98% on room air. HEENT: Pupils equal, round and reactive to light. Oral mucosa moist. NECK: No JVD, no neck masses. HEART: S1 and S2 heard. Regular rate and rhythm. No murmur, no gallop. RESPIRATORY SYSTEM: Normal AP diameter. No accessory muscle use. No wheezing, no crackles. ABDOMEN: Soft, bowel sounds present, nontender, no distention. CENTRAL NERVOUS SYSTEM: Cranial nerves II through XII are grossly intact, no nfocal. EXTREMITIES: Bilateral lower extremity gross edema with superficial ulcer seen in the right curry, some mild erythematous changes. Principal Diagnosis Edema leg: Possible cellulitis Urinary tract infection ( UTI ) Ambulatory dysfunction General weakness Fall Chronic kidney disease stage III: Hypokalemia. History of generalized anxiety disorder: Insomnia History of reflux esophagitis: Hyperlipidemia: Hypertension: History of Parkinson's: Discharge Exam General- No acute distress Head- atraumatic Eyes- PERRL, EOMI, ENT- oropharynx clear Neck- supple, no JVD Lungs- clear to auscultation Heart- regular rhythm; no murmur Abdomen- normal bowel sounds, soft, nontender Extremities- no calf tenderness' + edema-improved Neuro- alert, oriented x 3; PERRL, EOMI; no facial palsy; no dysarthria Skin- warm & dry Discharge Data Allergies Allergy/AdvReac Type Severity Reaction Status Date / Time ketorolac AdvReac Severe NO TORADOL Verified 10/30/20 21:48 ([id number] ADMISSION) Consultations 10/30/20 21:19 ED Decision to Admit Stat Ordered Studies 10/31/20 US venous doppler LE BI Routine BILATERAL LOWER EXTREMITY VENOUS DOPPLER CLINICAL HISTORY: b/l lower ext edema and erythema. dvt? COMPARISON STUDY: No previous studies for comparison. TECHNIQUE: Sonography of the deep venous system of the bilateral lower extremities was performed. Compression and augmentation were evaluated. FINDINGS: The bilateral common femoral, superficial femoral and popliteal veins were compressible. Augmentation was normal. Flow was shown within the deep calf vessels although the calf vessels were suboptimally assessed on this exam. IMPRESSION: No evidence of deep venous thrombus within the bilateral lower extremities. ACT 112: Negative or not required by law. Electronically signed by: Dillan Arevalo M.D. 10/31/2020 8:29 AM Dictated: 10/31/20816Transcribed: 10/31/20816 XR chest 1V portable HISTORY: 74 years-old Female SEPSIS acute sepsis COMPARISON: 08/23/2011 TECHNIQUE: Portable AP view of the chest FINDINGS: Cardiomediastinal and hilar silhouettes are within normal limits. No pneumothorax, pleural effusion, airspace consolidation or overt pulmonary edema. Degenerative changes of the shoulders and spine. IMPRESSION: No acute process. ACT 112: Negative or not required by law. The above report was generated using voice recognition software. It may contain grammatical, syntax or spelling errors. Electronically signed by: Ric Wolfe M.D. 10/30/2020 7:53 PM Dictated: 10/30/201951Transcribed: 10/30/201951 Hospital Course (1) Edema leg: Present on admission with worsening worsening lower extremity edema: History of venous insufficiency and lymphedema. Echo in November 2015 shows normal EF with grade 1 diastolic dysfunction. Doppler of lower extremity showed no evidence of DVT On Lasix 20 mg IV twice daily, will transition to her PO dose on discharge Pt was able to diuresis well with negative balance 11.5 L Will recommend fluid restriction to 1.8 L daily on discharge Continue monitor BMP Possible cellulitis Right lower extremity ulcer with mild erythema on admission IV antibiotic started with Zosyn on admission, then transition to PO keflex Stable UTI Urine culture grew gram negative bacilli- Ecoli Currently on IV Zosyn, will transition to PO Keflex Will complete course of abx with PO Keflex Ambulatory dysfunction General weakness Fall Continue PT/OT Son would like her to go to rehab or SNF to get stronger before transition home Cabidopa/Levodopa was discontinued by outpatient patient Fall precaution Waiting for placement to rehab Chronic kidney disease stage III: Creatinine 1.6 with Baseline creatinine around 1.2 to 1.7 Continue monitor BMP while on Lasix Stable Hypokalemia. Potassium on admission 3.1 Potassium replaced on admission K 3.5 on discharge Check BMP in 1 week to monitor PT/INR History of generalized anxiety disorder: Continue her bupropion and Ativan p.r.n. Insomnia: Continue melatonin at bedtime p.r.n. History of reflux esophagitis: Continue omeprazole. Hyperlipidemia: Continue on statin. Hypertension: BP stable Continue monitor blood pressure History of Parkinson's: Patient said carbidopa/levodopa was discontinued by provider due to lethargy DVT px on Heparin subcu CODE STATUS full code Disposition PT/OT eval Waiting for placement Total Time Total Time Spent Total Time Spent (In Minutes): 35 minutes Discharge Plan Discharge Items Patient Disposition: Transfer Assisted Fac Reason For Visit: LOWER EXTREMITY EDEMA Discharge Diagnosis: Edema leg: Possible cellulitis Urinary tract infection ( UTI ) Ambulatory dysfunction General weakness Fall Chronic kidney disease stage III: Hypokalemia. History of generalized anxiety disorder: Insomnia History of reflux esophagitis: Hyperlipidemia: Hypertension: History of Parkinson's: Activity: Resume your previous activity Non-emergency contact: Primary Care Provider Call non-emergency contact if: you have any medication questions Follow-up/Referrals: Dipti Fuentes DO [Primary Care Provider] - Diet: Heart Healthy Fluids: 1800ml (7 cups) Addtl Attending Provider Instructions: Follow up with primary care provider once discharge from [facility] Continue physical and occupational therapy Fall precaution Check BMP in 1 week to monitor electrolytes and renal function while on Lasix Complete the course of the antibiotic with Keflex Pending Studies at Discharge: No Stand-Alone Forms: My [facility] Skilled Items Patient informed of condition?: Yes DNR: No Discharge Level of Care: Skilled Communicable Disease: No Discharge Prognosis: Stable Lines: None Urinary Catheter: No Medications and DC Order Prescriptions: New cephalexin 500 mg Capsule 500 mg PO BID 4 Days Qty: 8 RF: 0 acetaminophen 325 mg Tablet 650 mg PO Q6H PRN (Reason: fever or pain) Qty: 30 RF: 0 Continued bupropion HCl 150 mg tablet sustained-release 12 hr 150 mg PO QAM RF: 0 oxybutynin chloride 15 mg tablet extended release 24 hr 15 mg PO QAM RF: 0 simvastatin 10 mg tablet 10 mg PO HS RF: 0 omeprazole 20 mg capsule,delayed release(DR/EC) 20 mg PO HS RF: 0 aspirin [Aspir-81] 81 mg Tablet,Delayed Release (Dr/Ec) 81 mg PO QAM RF: 0 docusate sodium [Colace] 100 mg Capsule 100 mg PO HS RF: 0 furosemide 20 mg tablet 20 mg PO BID RF: 0 Ocuvite Extra Tablet 1 tab PO DAILY RF: 0 Discontinued lorazepam 0.5 mg Tablet 0.5 mg PO DAILY PRN (Reason: Anxiety) RF: 0 carbidopa-levodopa 25-100 mg tablet 2 tab PO QID RF: 0 Discharge Orders: Discharge Order (Routine); Ordered 11/05/20 Ordered By: Nury Jaimes Admission Data Admit Date/Time: 10/30/20 21:55 Attending Provider: Nury Jaimes Admit Provider: Jeffrey Khoury Primary Care Provider: Dipti Fuentes Other Providers: Jeffrey Khoury ; [facility]
== END 2020-11-05 16:40 ==
LOC: ED 19:11 → 2N 21:55 → INTOOBSV 21:55 → 2N 22:35